=== PATIENT | female | born 1960 | race Caucasian/White ===

== ENCOUNTER 2017-12-20 08:09 | Day surgery (SDC) | payer MEDICARE, MEDICAID ==
[2017-12-20] MEDS ORDERED: Lactated Ringer's 500 ML IV ONE (09:00)
[2017-12-20 09:40] VITALS: BMI 29.0
[2017-12-20] MEDS ORDERED: Propofol 10 mg/ml Inj (20 ML) ONE (09:57)
[2017-12-20 10:53] VITALS: BP 125/87; PULSE 55; RESP 19; TEMP 98.4; O2SAT 99
== END 2017-12-20 11:15 | disposition home or self-care (01) ==
LOC: H.ENDO 08:09 → EDSTATUS 11:00 → H.ENDO 11:15
PROVIDERS: ATTEND Internal Medicine Gastroenterology
DX: Z12.11 Encounter for screening for malignant neoplasm of colon (principal); J45.909 Unspecified asthma, uncomplicated; E78.5 Hyperlipidemia, unspecified; I10 Essential (primary) hypertension; F32.9 Major depressive disorder, single episode, unspecified; K64.1 Second degree hemorrhoids; D12.2 Benign neoplasm of ascending colon
CPT/HCPCS: 45380; 88305; J2001; J2704; J7120

== ENCOUNTER 2018-01-31 07:22 | Day surgery (SDC) | payer MEDICARE, MEDICAID ==
[2018-01-31 07:44] VITALS: BMI 28.3
[2018-01-31] MEDS ORDERED: Lactated Ringer's 500 ML IV ONE (08:06)
[2018-01-31 08:08] VITALS: O2SAT 98
[2018-01-31] MEDS ORDERED: Midazolam 2 MG/2 ML VIAL ONE (09:16)
[2018-01-31] MEDS ORDERED: Propofol 10 mg/ml Inj (20 ML) ONE (09:17)
[2018-01-31 09:41] VITALS: BP 121/73; PULSE 76; RESP 21; TEMP 98
== END 2018-01-31 10:20 | disposition home or self-care (01) ==
LOC: H.ENDO 07:22
PROVIDERS: ATTEND Internal Medicine Gastroenterology
DX: K21.9 Gastro-esophageal reflux disease without esophagitis (principal); J45.909 Unspecified asthma, uncomplicated; E78.5 Hyperlipidemia, unspecified; I10 Essential (primary) hypertension; E03.9 Hypothyroidism, unspecified; K29.50 Unspecified chronic gastritis without bleeding
CPT/HCPCS: 43239; 88305; J2001; J2250; J2704; J7120